=== PATIENT | male | born 1940 | race Caucasian/White ===

== ENCOUNTER 2016-07-03 12:05 | Emergency (ER) | payer OTHER ==
[~2016-07-03 12:05] MED LIST: ALBUTEROL2.5 MG/3 M IH; ALLEGRA30 MG PO; AMERINET CHOIC500 MG PO; CARDI-OMEGA1000 MG PO; CHILDREN'S ASPI81 M1 PO; CIPRO 500MG TA500 MG PO; CRESTOR PO; DHA PO; FIBERCON625 M1 PO; FLOMAX 0.40.4 MG/CAP PO; FLOMAX0.4 MG PO; GOOD NEIGH1200 MG/15 PO; IPRATROPIUM BROM3 M1 IH; KROGER NIC14 MG/24 H TOP; MILK OF MA400 MG/52 PO; MIRALAX17 GM PO; NORCO 325 MG-51 TA1 PO; PREDNISONE20 M1 PO; PYRIDIUM200 M1 PO; ROCEPHIN VIA1 G/VIAL IV; THE MEDICINE S300 M1 PO; TYLENOL 325MG325 MG PO; VITAMIN D 1001000 IU PO; VITAMIN D1000 IU PO
[2016-07-03] MEDS ORDERED: VITAMIN D 1001000 IU PO (13:02)
[2016-07-03] MEDS ORDERED: MILK OF MA400 MG/51 PO (13:17)
[2016-07-03] MEDS ORDERED: OXY INH (13:19)
[2016-07-03] MEDS ORDERED: OXY IN (13:20)
[2016-07-03] MEDS ORDERED: MUCOMYST 20200 MG/M1 INH (13:20)
[2016-07-03] MEDS ORDERED: ALBUTEROL2.5 MG/3 M INH (13:21)
[2016-07-03] MEDS ORDERED: IPRATROPIUM BROM3 M1 INH (13:22)
[2016-07-03] MEDS ORDERED: NORCO 325 MG-51 TA1 PO (13:24)
[2016-07-03] MEDS ORDERED: SEPTRA 400 MG-1 TAB PO (14:19)
[2016-07-03] MEDS ORDERED: BACTRIM DS TAB1 EACH PO (14:19)
== END 2016-07-03 14:45 | disposition home or self-care (01) ==
LOC: ED 12:05
DX: N39.0 Urinary tract infection, site not specified (principal); R46.2 Strange and inexplicable behavior

== ENCOUNTER → 2016-07-17 | Outpatient (CLI) | payer OTHER ==
[~2016-07-17] MED LIST changes: +ALBUTEROL2.5 MG/3 M INH; +BACTRIM DS TAB1 EACH PO; +CIPRO500 M1 PO; +IPRATROPIUM BROM3 M1 INH; +LEVOFLOXACIN 5100 ML IV; +MILK OF MA400 MG/51 PO; +MORPHINE S20 MG/5 M1 PO; +MUCOMYST 20200 MG/M1 INH; +OXY IN; +OXY INH; +SEPTRA 400 MG-1 TAB PO
== END ==
LOC: LAB 05:25
DX: N39.0 Urinary tract infection, site not specified (principal)

== ENCOUNTER 2016-09-03 19:45 | Emergency (ER) | payer OTHER ==
[~2016-09-03 19:45] MED LIST changes: -CIPRO500 M1 PO; -LEVOFLOXACIN 5100 ML IV; -MORPHINE S20 MG/5 M1 PO
[2016-09-03] MEDS ORDERED: NORCO 325 MG-51 TA1 PO (22:36)
[2016-09-03] MEDS ORDERED: CIPRO500 M1 PO (22:36)
== END 2016-09-03 23:03 | disposition home or self-care (01) ==
LOC: ED 19:45
DX: N30.01 Acute cystitis with hematuria (principal); Z93.3 Colostomy status
CPT/HCPCS: J2270; J7030; Q9967

== ENCOUNTER 2016-10-22 14:34 | Emergency (ER) | payer OTHER ==
[~2016-10-22 14:34] MED LIST changes: +CIPRO500 M1 PO
[2016-10-22] MEDS ORDERED: MORPHINE S20 MG/5 M1 PO (21:19)
[2016-10-22] MEDS ORDERED: LEVOFLOXACIN 5100 ML IV (21:43)
[2016-10-22 21:50] VITALS: BP 117/79
== END 2016-10-22 21:50 | disposition home or self-care (01) ==
LOC: ED 14:34
DX: N39.0 Urinary tract infection, site not specified (principal); R91.8 Other nonspecific abnormal finding of lung field; K31.89 Other diseases of stomach and duodenum; K43.9 Ventral hernia without obstruction or gangrene; S22.069A Unspecified fracture of T7-T8 vertebra, initial encounter for closed fracture; Z93.3 Colostomy status; E11.9 Type 2 diabetes mellitus without complications; J44.9 Chronic obstructive pulmonary disease, unspecified; J45.909 Unspecified asthma, uncomplicated; Z87.891 Personal history of nicotine dependence
CPT/HCPCS: J1956; J2270; J2405; J7030; J7040

== ENCOUNTER → 2016-11-03 | Outpatient (CLI) | payer OTHER ==
[2016-10-22 21:50] VITALS: BP 117/79
[~2016-11-03] MED LIST changes: +LEVOFLOXACIN 5100 ML IV; +MORPHINE S20 MG/5 M1 PO
== END ==
LOC: LAB 06:00
DX: Z09 Encounter for follow-up examination after completed treatment for conditions other than malignant neoplasm (principal); N39.0 Urinary tract infection, site not specified